=== PATIENT | male | born 1960 | race Caucasian/White ===

== ENCOUNTER → 2025-03-28 | Outpatient (CLI) | payer MEDICARE, SELFPAY | END | disposition home or self-care (01) | PROVIDERS: PCP Internal Medicine; Referring Provider Urology; Visit Provider Urology | DX: N40.1 Benign prostatic hyperplasia with lower urinary tract symptoms (principal) | CPT/HCPCS: 87077; 87086; 87088; 87186 ==

== ENCOUNTER → 2025-09-19 | Outpatient (CLI) | payer MEDICARE, SELFPAY ==
--- OUTSIDE RECORDS SUMMARY | 2025-09-19 17:12 | XMS RPT_ITS | CCD ---
Author Organization [facility] Care Team Providers Care Inpatient Nursing Aide Name Role Phone REX DO, JAKE Primary Care Physician [phone] BITONTE DO, JAKE Attending Unavailable BITONTE DO, JAKE Primary Care Unavailable BITONTE DO, JAKE Primary Care Unavailable AMBER AGLLEGO, DR BRANDI Jernigan Attending Unavailab radha BA MD, DR BRANDI Jernigan Attending Unavailab radha PATTERSON MD, LYN Consulting Unavailable BITONTE DO, JAKE Primary Care Unavailable LUIS GALLEGO, KADEN Consulting Unavailable AMBER GALLEGO, DR BRANDI Jernigan Attending Unavailab le BITONTE DO, JAKE Primary Care Unavailable BITONTE DO, JAKE Primary Care Unavailable BITONTE DO, JAKE Attending Unavailable BITONTE DO, JAKE Primary Care Unavailable BITONTE DO, JAKE Attending Unavailable BITONTE DO, JAKE Primary Care Unavailable RITO KENYON MD Attending Unavailable BITONTE DO, JAKE Primary Care Unavailable BITONTE DO, JAKE Attending Unavailable BITONTE DO, JAKE Attending Unavailable BITONTE DO, JAKE Primary Care Unavailable BITONTE DO, JAKE Attending Unavailable BITONTE DO, JAKE Primary Care Unavailable John Strickland Jr. Primary Care Unavailable Fuentes Peace Referring Unavailable Fuentes Peace Attending Unavailable Medications Current Medications Medication Drug Class(es) Dates Sig (Normalized) Sig (Original) acetaminophen 325 mg / HYDROcodone bitartrate 5 mg oral tablet (2 sources) Opioid Agonist Start: 04-22-2023 End: 04-27-2023 take 1 tablet by mouth every four hours as needed for pain [place] 325- 5 mg oral tablet Dose = 1 tab(s), Oral, q4h, PRN for pain, # 12 tab(s), 0 Refill(s), Pharmacy: [facility]/pharmacy #[id number], Post-op pain, 177.8, cm, 04/22/23 6:40:00 EDT, Height, 74.6 Start Date: 04/22/23 Stop Date: 04/27/23 Status: Ordered Start: 02-10-2023 End: 02-15-2023 take 1 tablet by mouth every four hours as needed for pain [place] 325- 5 mg oral tablet Dose = 1 tab(s), Oral, q4h, PRN for pain, # 12 tab(s), 0 Refill(s), Pharmacy: [facility]/pharmacy #[id number], Post-op pain, 177.8, cm, 02/10/23 7:37:00 EDT, Height, 78.6 Start Date: 02/10/23 Stop Date: 02/15/23 Status: Ordered finasteride 5 mg oral tablet (4 sources) 5-alpha Reductase Inhibitor Start: 02-17-2022 finasteride 5 mg oral tablet Dose : 5 mg = 1 tab(s), Oral, qHS Start Date: 02/17/22 Status: Ordered Multi-Day Plus Minerals oral tablet (4 sources) Start: 02-17-2022 take 1 tablet by mouth once daily in the morning Multi-Day Plus Minerals oral tablet Dose = 1 tab(s), Oral, qAM, # 30 tab(s), 0 Refill(s) Start Date: 02/17/22 Status: Ordered Start: 02-17-2022 take 1 tablet by azalia th once daily Multi-Day Plus Minerals oral tablet Dose = 1 tab(s), Oral, Daily, # 30 tab(s), 0 Refill(s) Start Date: 02/17/22 Status: Ordered Problems Active Problems Problem Classification Problem Date Documented Date Episodic/Chronic Abdominal hernia (8 sources) Inguinal hernia; Translations: [Left inguinal hernia ] 10-16-2015 Episodic Cardiac dysrhythmias (3 sources) 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 Cardiac dysrhythmias (1 source) Palpitations 10-12-2015 Episodic Diabetes mellitus without complication (4 sources) Hyperglycemia 10-03-2019 Episodic Disorders of lipid metabolism (4 sources) Mixed hyperlipidemia 10-03-2019 Chronic Hyperplasia of prostate (5 sources) Large prostate ; Translations: [Benign prostatic hyperplasia with lower urinary tract symptoms] Onset: 04-04-2025 10-03-2019 Chronic Other aftercare (1 source) Surgical follow-up 05-04-2023 Episodic Other and unspecified benign neoplasm (4 sources) Melanocytic nevus of skin 02-17-2022 Episodic Other and unspecified benign neoplasm (2 sources) Lipoma (clinical) 03-26-2023 Episodic Other nervous system disorders (2 sources) Postoperative pain ; Translations: [Other acute postprocedural pain] Onset: 02-10-2023 Episodic Nichole-; endo-; and myocarditis; cardiomyopathy (except that caused by tuberculosis or sexually transmitted disease) (2 sources) Cardiomyopathy 05-19-2023 Chronic Residual codes; unclassified (4 sources) FH: premature coronary heart disease 11-27-2020 Episodic Past or Other Problems Problem Classification Problem Date Documented Da te Episodic/Chronic Malaise and fatigue (2 sources) Other fatigue; Translations: [Other fatigue] Onset: 03-16-2023 Episodic Other screening for suspected conditions (not mental disorders or infectious disease) (2 sources) Other specified abnormal findings of blood chemistry; Translations: [Other specified abnormal findings of blood chemistry] Onset: 03-26-2023 Episodic Results Test Name Value Interpretation Reference Range Facility Urine Cultureon 03-30-2025 [facility] Staphylococcus aureu s [place] Count >100,000 Staphylococcus aureus: REACTION cefOXitin Susc Islt Doxycycline Islt MASON <=0.5 S Clindamycin.induced Susc Islt NEG Gentamicin Islt MASON <=0.5 S Linezolid Islt MASON 2 S Moxifloxacin Islt MASON <=0.25 S Nitrofurantoin Islt MASON <=16 S Oxacillin Susc Islt 1 S Tetracycline Islt MASON <=1 S TMP SMX Islt MASON <=10 S Vancomycin Islt MASON <=0.5 S Normal [facility] Comment on above: Performed By: #### M 100.2200 #### [facility] [address] [place], [place], [id number] .Auto Diffon 03-08-2025 Basophil, Absolute 0.0 10 3/mcL Normal 0.0-0.3 [facility] Comment on above: Performed By: #### L IPID, GFR, ADIFF, MORPH, ANEU, CBC, CMP #### [facility] [place] [address] [place] [id number] #### PSA #### [address] [address] Basophils/100 WBC (Bld) 0.6 % Normal 0.0-2.5 [facility] [place] Comment on above: Performed By: #### L IPID, GFR, ADIFF, MORPH, ANEU, CBC, CMP #### [facility] [address] [place] [id number] #### PSA #### [address] [address] Eosinophil, Absolute 0.1 10 3/mcL Normal 0.0-0.7 [facility] Comment on above: Performed By: #### L IPID, GFR, ADIFF, MORPH, ANEU, CBC, CMP #### [facility] [address] [place] [address] #### PSA #### [address] [address] Eosinophils/100 WBC (Bld) 4.1 % Normal 0.0-6.0 [facility] Comment on above: Performed By: #### L IPID, GFR, ADIFF, MORPH, ANEU, CBC, CMP #### [facility] [address] [place] [id number] #### PSA #### [address] [address] Lymphocyte, Absolute 1.0 10 3/mcL Normal 0.9-4.3 [facility] Comment on above: Performed By: #### L IPID, GFR, ADIFF, MORPH, ANEU, CBC, CMP #### [facility] [address] [place] [id number] #### PSA #### [address] [address] Lymphocytes/100 WBC (Bld) 27.5 % Normal 20.0-40.0 [facility] [place] Comment on above: Performed By: #### L IPID, GFR, ADIFF, MORPH, ANEU, CBC, CMP #### [facility] [place] [address] [place] [id number] #### PSA #### [place] [address] Monocyte, Absolute 0.4 10 3/mcL Normal 0.1-1.4 [facility] Comment on above: Performed By: #### L IPID, GFR, ADIFF, MORPH, ANEU, CBC, CMP #### [facility] [place] [address] [place] [id number] #### PSA #### [place] [address] Monocytes/100 WBC (Bld) 11.6 % Normal 2.0-13.0 [facility] [place] Comment on above: Performed By: #### L IPID, GFR, ADIFF, MORPH, ANEU, CBC, CMP #### [facility] [address] [place] [address] #### PSA #### [place] [address] Neutrophils/100 WBC (Bld) 56.2 % Normal 50.0-75.0 [facility] Comment on above: Performed By: #### L IPID, GFR, ADIFF, MORPH, ANEU, CBC, CMP #### [facility] [address] [place] [address] #### PSA #### [place] [address] .GFRon 03-08-2025 Estimated Glomerular Filtration Rate 87 ml/min/1.73sqm Normal [facility] Comment on above: Result Comment: Stages of Chronic Kidney Disease (CKD) Stage Description eGFR(ml/min/1.73 sq.m.) CKD 1 Normal kidney function or >=90 normal kindney function with possible kidney damage (ex. Proteinuria) CKD 2 Kidney damage with mild loss 60-89 of kidney function CKD 3a Mild to moderate loss of kidney 45-59 function CKD 3b Moderate to severe loss of 30-44 of kindey function CKD 4 Severe loss of kidney function 15-29 CKD 5 Kidney failure <15 Note: (go live 2024) the eGFR calculation was updated to the 2020 CKD-EPI creatinine equation without a race factor to calculate the eGFR results. Performed By: #### L IPID, GFR, ADIFF, MORPH, ANEU, CBC, CMP #### [facility] [address] [place] [address] #### PSA #### [place] [address] .Morphon 03-08-2025 Platelet Estimate Normal Normal [facility] Comment on above: Performed By: #### L IPID, GFR, ADIFF, MORPH, ANEU, CBC, CMP #### [facility] [address] [place] [address] #### PSA #### [place] [address] .NEUABSon 03-08-2025 Neutrophil, Absolute 2.0 10 3/mcL Low 2.3-8.1 [facility] Comment on above: Performed By: #### L IPID, GFR, ADIFF, MORPH, ANEU, CBC, CMP #### [facility] [address] [place] [address] #### PSA #### [place] [address] CBCon 03-08-2025 Erythrocyte distribution width (RBC) [Ratio] 13.7 % Normal 11.5-15.5 [facility] Comment on above: Performed By: #### L IPID, GFR, ADIFF, MORPH, ANEU, CBC, CMP #### [facility] [address] [place] [address] #### PSA #### [place] [address] Hematocrit (Bld) [Volume fraction] 43.8 % Normal 40.0-52.0 [facility] [place] Comment on above: Performed By: #### L IPID, GFR, ADIFF, MORPH, ANEU, CBC, CMP #### [facility] [address] [place] [address] #### PSA #### [place] [address] Hgb 14.5 G/dL Normal 13.0-17.5 [facility] [place] Comment on above: Performed By: #### L IPID, GFR, ADIFF, MORPH, ANEU, CBC, CMP #### [facility] [address] [place] [address] #### PSA #### [place] [address] MCH (RBC) [Entitic mass] 27.8 pg Normal 27.0-33.0 [facility] Comment on above: Performed By: #### L IPID, GFR, ADIFF, MORPH, ANEU, CBC, CMP #### [facility] [address] [place] [address] #### PSA #### [place] [address] MCHC 33.1 G/dL Normal 32.0-36.0 [facility] Comment on above: Performed By: #### L IPID, GFR, ADIFF, MORPH, ANEU, CBC, CMP #### [facility] [address] [place] [address] #### PSA #### [place] [address] MCV (RBC) [Entitic vol] 84.0 fL Normal 81.0-100.0 [facility] Comment on above: Performed By: #### L IPID, GFR, ADIFF, MORPH, ANEU, CBC, CMP #### [facility] [address] [place] [address] #### PSA #### [place] [address] Platelet 193 10 3/mcL Normal 150-450 [facility] Comment on above: Performed By: #### L IPID, GFR, ADIFF, MORPH, ANEU, CBC, CMP #### [facility] [address] [place] [address] #### PSA #### [place] [address] Platelet mean volume (Bld) [Entitic vol] 8.2 fL Normal 6.4-10.5 [facility] Comment on above: Performed By: #### L IPID, GFR, ADIFF, MORPH, ANEU, CBC, CMP #### [facility] [address] [place] [address] #### PSA #### [place] [address] RBC 5.21 10 6/mcL Normal 4.50-6.00 [facility] Comment on above: Performed By: #### L IPID, GFR, ADIFF, MORPH, ANEU, CBC, CMP #### [facility] [address] [place] [address] #### PSA #### [place] [address] WBC 3.6 10 3/mcL Low 4.5-10.8 [facility] Comment on above: Performed By: #### L IPID, GFR, ADIFF, MORPH, ANEU, CBC, CMP #### [facility] [address] [place] [address] #### PSA #### [place] [address] CMPon 03-08-2025 Albumin Level 4.0 G/dL Normal 3.4-4.8 [facility] Comment on above: Performed By: #### L IPID, GFR, ADIFF, MORPH, ANEU, CBC, CMP #### [facility] [address] [place] [address] #### PSA #### [place] [address] Albumin/Globulin [Mass ratio] 1.3 {ratio} Normal 1.1-2.5 [facility] Comment on above: Performed By: #### L IPID, GFR, ADIFF, MORPH, ANEU, CBC, CMP #### [facility] [address] [place] [address] #### PSA #### [place] [address] ALP [Catalytic activity/Vol] 70 U/L Normal 40-135 [facility] Comment on above: Performed By: #### L IPID, GFR, ADIFF, MORPH, ANEU, CBC, CMP #### [facility] [place] [address] [place] [address] #### PSA #### [place] [address] ALT [Catalytic activity/Vol] 35 U/L Normal 16-63 [facility] Comment on above: Performed By: #### L IPID, GFR, ADIFF, MORPH, ANEU, CBC, CMP #### [facility] [address] [place] [address] #### PSA #### [place] [address] AST [Catalytic activity/Vol] 22 U/L Normal 10-40 [facility] Comment on above: Performed By: #### L IPID, GFR, ADIFF, MORPH, ANEU, CBC, CMP #### [facility] [address] [place] [address] #### PSA #### [place] [address] Bili Total 0.8 mg/dL Normal 0.2-1.0 [facility] Comment on above: Result Comment: Use of this assay is not recommended for patients undergoing treatment with eltrombopag due to the potential for falsely elevated results. Performed By: #### L IPID, GFR, ADIFF, MORPH, ANEU, CBC, CMP #### [facility] [address] [place] [address] #### PSA #### [place] [address] BUN/Creatinine Ratio 19 ratio Normal 7-27 [facility] Comment on above: Performed By: #### L IPID, GFR, ADIFF, MORPH, ANEU, CBC, CMP #### [facility] [address] [place] [address] #### PSA #### [place] [address] Calcium [Mass/Vol] 9.3 mg/dL Normal 8.4-10.2 [facility] Comment on above: Performed By: #### L IPID, GFR, ADIFF, MORPH, ANEU, CBC, CMP #### [facility] [address] [place] [phone] #### PSA #### [place] [address] Chloride [Moles/Vol] 105 mmol/L Normal 98-107 [facility] Comment on above: Performed By: #### L IPID, GFR, ADIFF, MORPH, ANEU, CBC, CMP #### [facility] [place] [address] [place] [phone] #### PSA #### [place] [address] CO2 [Moles/Vol] 28 mmol/L Normal 23-31 [facility] Comment on above: Performed By: #### L IPID, GFR, ADIFF, MORPH, ANEU, CBC, CMP #### [facility] [address] [place] [phone] #### PSA #### [place] [address] Creatinine [Mass/Vol] 0.97 mg/dL Normal 0.67-1.17 [facility] Comment on above: Performed By: #### L IPID, GFR, ADIFF, MORPH, ANEU, CBC, CMP #### [facility] [place] [address] [place] [address] #### PSA #### [place] [address] Electrolyte Balance 8.0 mEq/L Normal 4.0-15.0 [facility] Comment on above: Performed By: #### L IPID, GFR, ADIFF, MORPH, ANEU, CBC, CMP #### [facility] [address] [place] [id number] #### PSA #### [place] [address] Globulin 3.0 G/dL Normal 2.7-4.4 [facility] Comment on above: Performed By: #### L IPID, GFR, ADIFF, MORPH, ANEU, CBC, CMP #### [facility] [place] [address] [place] [id number] #### PSA #### [address] [address] Glucose [Mass/Vol] 101 mg/dL Normal 80-115 [facility] [place] Comment on above: Performed By: #### L IPID, GFR, ADIFF, MORPH, ANEU, CBC, CMP #### [facility] [address] [place], [place] [address] #### PSA #### [place] [id number] Potassium [Moles/Vol] 4.5 mmol/L Normal 3.5-5.1 [facility] Comment on above: Performed By: #### L IPID, GFR, ADIFF, MORPH, ANEU, CBC, CMP #### [facility] [address] [place] [id number] #### PSA #### [place] [address] Sodium [Moles/Vol] 141 mmol/L Normal 136-145 [facility] Comment on above: Performed By: #### L IPID, GFR, ADIFF, MORPH, ANEU, CBC, CMP #### [facility] [address] [place] [id number] #### PSA #### [place] [id number] Total Protein 7.0 G/dL Normal 6.4-8.2 [facility] Comment on above: Performed By: #### L IPID, GFR, ADIFF, MORPH, ANEU, CBC, CMP #### [facility] [address] [place] [phone] #### PSA #### [address] [address] Urea nitrogen [Mass/Vol] 18 mg/dL Normal 7-18 [facility] Comment on above: Performed By: #### L IPID, GFR, ADIFF, MORPH, ANEU, CBC, CMP #### [facility] [address] [place] [phone] #### PSA #### [place] [id number] LIPIDon 03-08-2025 Cholesterol [Mass/Vol] 163 mg/dL Normal 0-200 [facility] Comment on above: Result Comment: Chol esterol Reference Interval: Less than 200 Desirable 200-239 Borderline high risk 240 and above High risk Performed By: #### L IPID, GFR, ADIFF, MORPH, ANEU, CBC, CMP #### [facility] [address] [place] [id number] #### PSA #### [place] [address] Cholesterol in HDL [Mass/Vol] 51 mg/dL Normal 40-60 [facility] Comment on above: Performed By: #### L IPID, GFR, ADIFF, MORPH, ANEU, CBC, CMP #### [facility] [address] [place] [address] #### PSA #### [place] [address] Cholesterol in LDL [Mass/Vol] 98 mg/dL Normal 0-130 [facility] Comment on above: Performed By: #### L IPID, GFR, ADIFF, MORPH, ANEU, CBC, CMP #### [facility] [address] [place] [address] #### PSA #### [place] [address] Triglyceride [Mass/Vol] 71 mg/dL Normal 0-150 [facility] Comment on above: Performed By: #### L IPID, GFR, ADIFF, MORPH, ANEU, CBC, CMP #### [place] [facility] [place] [address] [place] [address] #### PSA #### [place] [address] PSAon 03-08-2025 Prostate Specific Antigen 1.80 ng/mL Normal 0.02-4.00 [facility] Comment on above: Result Comment: Lesvia ent results determined by assays using different manufacturers for methods may not be comparable. Performed By: #### L IPID, GFR, ADIFF, MORPH, ANEU, CBC, CMP #### [facility] [place] [address] [place] [address] #### PSA #### [address] [address] PSAon 03-08-2024 Prostate Specific Antigen 2.27 ng/mL Normal 0.02-4.00 [facility] ([place]) Comment on above: Result Comment: Lesvia ent results determined by assays using different manufacturers for methods may not be comparable. Performed By: #### P SA #### [address] [address] .Auto Diffon 03-03-2024 Basophil, Absolute 0.0 10 3/mcL Normal 0.0-0.3 [facility] ([place]) Comment on above: Performed By: #### G FR, LIPID, CBC, ADIFF, ANEU, BMP #### [address] [address] Basophils/100 WBC (Bld) 1.2 % Normal 0.0-2.5 [facility] ([place]) Comment on above: Performed By: #### G FR, LIPID, CBC, ADIFF, ANEU, BMP #### [address] [address] Eosinophil, Absolute 0.1 10 3/mcL Normal 0.0-0.7 [facility] ([place]) Comment on above: Performed By: #### G FR, LIPID, CBC, ADIFF, ANEU, BMP #### [address] [address] Eosinophils/100 WBC (Bld) 3.0 % Normal 0.0-6.0 [facility] ([place]) Comment on above: Performed By: #### G FR, LIPID, CBC, ADIFF, ANEU, BMP #### [address] [address] Lymphocyte, Absolute 0.9 10 3/mcL Normal 0.9-4.3 [facility] ([place]) Comment on above: Performed By: #### G FR, LIPID, CBC, ADIFF, ANEU, BMP #### [address] [address] Lymphocytes/100 WBC (Bld) 22.1 % Normal 20.0-40.0 [facility] ([place]) Comment on above: Performed By: #### G FR, LIPID, CBC, ADIFF, ANEU, BMP #### [address] [address] Monocyte, Absolute 0.4 10 3/mcL Normal 0.1-1.4 [facility] ([place] Comment on above: Performed By: #### G FR, LIPID, CBC, ADIFF, ANEU, BMP #### [address] [address] Monocytes/100 WBC (Bld) 9.4 % Normal 2.0-13.0 [facility] ([place]) Comment on above: Performed By: #### G FR, LIPID, CBC, ADIFF, ANEU, BMP #### [address] [address] Neutrophils/100 WBC (Bld) 64.3 % Normal 50.0-75.0 [facility] ([place]) Comment on above: Performed By: #### G FR, LIPID, CBC, ADIFF, ANEU, BMP #### [address] [address] .GFRon 03-03-2024 GFR Non- >60 Normal [facility] ([place]) Comment on above: Result Comment: GFR Population mean for , Non- Americans Ages 20-29 = 116 mL/min/1.73 sq.m. Ages 30-39 = 107 mL/min/1.73 sq.m. Ages 40-49 = 99 mL/min/1.73 sq.m. Ages 50-59 = 93 mL/min/1.73 sq.m. Ages 60-69 = 85 mL/min/1.73 sq.m. Ages 70+ = 75 mL/min/1.73 sq.m. Chronic Kidney Disease: Less than 60 mL/min/1.73 square meters End Stage Renal Disease: Less than 15 mL/min/1.73 square meters Performed By: #### G FR, LIPID, CBC, ADIFF, ANEU, BMP ####[address] [address] GFR >60 Normal [facility] ([place]) Comment on above: Result Comment: GFR Population mean for , Non- Americans Ages 20-29 = 116 mL/min/1.73 sq.m. Ages 30-39 = 107 mL/min/1.73 sq.m. Ages 40-49 = 99 mL/min/1.73 sq.m. Ages 50-59 = 93 mL/min/1.73 sq.m. Ages 60-69 = 85 mL/min/1.73 sq.m. Ages 70+ = 75 mL/min/1.73 sq.m. Chronic Kidney Disease: Less than 60 mL/min/1.73 square meters End Stage Renal Disease: Less than 15 mL/min/1.73 square meters Performed By: #### G FR, LIPID, CBC, ADIFF, ANEU, BMP ####[address] [address] .NEUABSon 03-03-2024 Neutrophil, Absolute 2.8 10 3/mcL Normal 2.3-8.1 [facility] ([place]) Comment on above: Performed By: #### G FR, LIPID, CBC, ADIFF, ANEU, BMP #### [address] [address] BMPon 03-03-2024 BUN/Creatinine Ratio 18.4 ratio Normal 10.0-22.0 [facility] ([place]) Comment on above: Order Comment: Pleas e drawn in 02/2023, 1 year labs. Performed By: #### G FR, LIPID, CBC, ADIFF, ANEU, BMP ####[address] [address] Calcium [Mass/Vol] 9.5 mg/dL Normal 8.7-10.4 [facility] ([place]) Comment on above: Order Comment: Pleas e drawn in 02/2023, 1 year labs. Performed By: #### G FR, LIPID, CBC, ADIFF, ANEU, BMP ####[address] [address] Chloride [Moles/Vol] 109 mmol/L Normal 98-110 [facility] ([place]) Comment on above: Order Comment: Pleas e drawn in 02/2023, 1 year labs. Performed By: #### G FR, LIPID, CBC, ADIFF, ANEU, BMP ####[address] [address] CO2 [Moles/Vol] 30 mmol/L Normal 22-32 [facility] [place] Comment on above: Order Comment: Pleas e drawn in 02/2023, 1 year labs. Performed By: #### G FR, LIPID, CBC, ADIFF, ANEU, BMP ####[address] [address] Creatinine [Mass/Vol] 0.87 mg/dL Normal 0.60-1.40 [facility] ([place]) Comment on above: Order Comment: Pleas e drawn in 02/2023, 1 year labs. Performed By: #### G FR, LIPID, CBC, ADIFF, ANEU, BMP ####[address] [address] Electrolyte Balance 0.0 mEq/L Low 4.0-15.0 [facility] ([place]) Comment on above: Order Comment: Pleas e drawn in 02/2023, 1 year labs. Performed By: #### G FR, LIPID, CBC, ADIFF, ANEU, BMP ####[address] [address] Glucose [Mass/Vol] 107 mg/dL Normal 82-115 [facility] ([place]) Comment on above: Order Comment: Pleas e drawn in 02/2023, 1 year labs. Performed By: #### G FR, LIPID, CBC, ADIFF, ANEU, BMP ####[address] [address] Potassium [Moles/Vol] 4.6 mmol/L Normal 3.5-5.0 [facility] ([place]) Comment on above: Order Comment: Pleas e drawn in 02/2023, 1 year labs. Performed By: #### G FR, LIPID, CBC, ADIFF, ANEU, BMP ####[address] [address] Sodium [Moles/Vol] 139 mmol/L Normal 136-145 [facility] ([place]) Comment on above: Order Comment: Pleas e drawn in 02/2023, 1 year labs. Performed By: #### G FR, LIPID, CBC, ADIFF, ANEU, BMP ####[place] [address] Urea nitrogen [Mass/Vol] 16.0 mg/dL Normal 8.0-22.0 [facility] ([place]) Comment on above: Order Comment: Noah reynoso drawn in 02/2023, 1 year labs. Performed By: #### G FR, LIPID, CBC, ADIFF, ANEU, BMP ####[place] [address] CBCon 03-03-2024 Erythrocyte distribution width (RBC) [Ratio] 13.9 % Normal 11.5-15.5 [facility] ([place] Comment on above: Performed By: #### G FR, LIPID, CBC, ADIFF, ANEU, BMP #### [place] [address] Hematocrit (Bld) [Volume fraction] 43.9 % Normal 40.0-52.0 [facility] ([place] Comment on above: Performed By: #### G FR, LIPID, CBC, ADIFF, ANEU, BMP #### [place] [address] Hgb 14.9 G/dL Normal 13.0-17.5 [facility] ([place] Comment on above: Performed By: #### G FR, LIPID, CBC, ADIFF, ANEU, BMP #### [place] [address] MCH (RBC) [Entitic mass] 28.2 pg Normal 27.0-33.0 [facility] ([place] Comment on above: Performed By: #### G FR, LIPID, CBC, ADIFF, ANEU, BMP #### [place] [address] MCHC 33.9 G/dL Normal 32.0-36.0 [facility] ([place] Comment on above: Performed By: #### G FR, LIPID, CBC, ADIFF, ANEU, BMP #### [place] [address] MCV (RBC) [Entitic vol] 83.3 fL Normal 81.0-100.0 [facility] ([place]) Comment on above: Performed By: #### G FR, LIPID, CBC, ADIFF, ANEU, BMP #### [place] [address] Platelet 190 10 3/mcL Normal 150-450 [facility] ([place]) Comment on above: Performed By: #### G FR, LIPID, CBC, ADIFF, ANEU, BMP #### [place] [address] Platelet mean volume (Bld) [Entitic vol] 9.0 fL Normal 6.4-10.5 [facility] ([place]) Comment on above: Performed By: #### G FR, LIPID, CBC, ADIFF, ANEU, BMP #### [place] [address] RBC 5.28 10 6/mcL Normal 4.50-6.00 [facility] ([place]) Comment on above: Performed By: #### G FR, LIPID, CBC, ADIFF, ANEU, BMP #### [place] [address] WBC 4.3 10 3/mcL Low 4.5-10.8 [facility] ([place]) Comment on above: Performed By: #### G FR, LIPID, CBC, ADIFF, ANEU, BMP #### [place] [address] HCVon 03-03-2024 Hep C Ab Non-Reactive Normal Non-Reactive [facility] ([place]) Comment on above: Performed By: #### H CV1 #### [place] [address] Hep C Ab Int Normal [facility], [facility] ([place]) Comment on above: Result Comment: Nonr eactive: Samples with a value < 0.80 are considered nonreactive (negative) for antibodies to HCV. A negative test result does not exclude the possibility of exposure to or infection with HCV. HCV antibodies may be undetectable in some stages of the infection and in some clinical conditions. See Interp Performed By: #### H CV1 #### [place] [address] LIPIDon 04-25-2024 Cholesterol [Mass/Vol] 184 mg/dL Normal 50-199 [facility] ([place]) Comment on above: Order Comment: Pleas e drawn in 02/2023, 1 year labs. Result Comment: Chol esterol Reference Interval: Less than 200 Desirable 200-239 Borderline high risk 240 and above High risk Performed By: #### G FR, LIPID, CBC, ADIFF, ANEU, BMP ####[place] [id number] [place] [address] Cholesterol in HDL [Mass/Vol] 53 mg/dL Normal 40-59 [facility] ([place]) Comment on above: Order Comment: Pleas e drawn in 02/2023, 1 year labs. Performed By: #### G FR, LIPID, CBC, ADIFF, ANEU, BMP ####[place] [id number] [place] [address] Cholesterol in LDL [Mass/Vol] 110 mg/dL Normal 0-129 [facility] ([place]) Comment on above: Order Comment: Pleas e drawn in 02/2023, 1 year labs. Performed By: #### G FR, LIPID, CBC, ADIFF, ANEU, BMP ####[address] [address] Triglyceride [Mass/Vol] 107 mg/dL Normal 3-149 [facility] ([place]) Comment on above: Order Comment: Pleas e drawn in 02/2023, 1 year labs. Performed By: #### G FR, LIPID, CBC, ADIFF, ANEU, BMP ####[address] [address] MRI CARDIAC MORPHOLOGY AND F [facility] W+W/O CONTon 10-04-2023 MRI CARDIAC MORPHOLOGY AND FUNC W+W/O CONT ORIGINAL Indication: Cardiomyopathy Technique: SSFP, 2XIR and 2XIR+FS images were obtained. 30 CC Multihance contrast given and First pass perfusion images, EGE and LGE (PSIR and MagIR) images were obtained. Findings: Septal wall thickness: 9 mm PW thickness: 6 mm LVEDD: 58 mm RV Basal diameter: 42 mm RV Long [place]: 70 mm AORTA (@ level of MPA): 34 mm MPA (@ level of Aorta): 26 mm RPA: 18 mm LPA: 18 mm IVC: 17 mm Pulmonary Veins: Normal LV Systolic function appears low normal . EF (visual estimation) is 55 % RV systolic function appears normal CHASTITY: Normal No regional wall motion abnormalities noted. Noncompaction in apical lateral segment: NC:C ratio 2.4. NC myocardium less than 20% of myocardium. Quantification: LV mass [g]: \X0909\ 72 LV mass/BSA [g/m2]:\X09\ 37 LV EDV [mL]:\X0909\ 198 LV ESV [mL]:\X0909\ 89 LV stroke volume [mL]: 110 LV EF [%]:\X0909\ 55 C.O [L/min]:\X0909\ 8,3 C.O/BSA:\X0909\ 4.2 RV EDV [mL]:\X0909\ 151 RV ESV [mL]:\X0909\ 59 RV stroke volume [mL]:\X09\92 RV EF [%]:\X0909\ 61 C.O [L/min]:\X0909\ 7 Valves: Normal Masses: Absent Pericardial thickening: Absent Pericardial effusion: Absent T1 images Unremarkable T1+FS images No edema First pass images show normal perfusion Post contrast images no significant EGE or LGE Conclusion: 1. Mild left ventricular dilatation with low normal LV systolic function. LVEF 55%. There is increased ratio of Noncompacted: Compacted myocardium limited to apical lateral wall [ratio 2.4]. The remainder of the myocardium appears normal. The noncompacted myocardial mass is less than 20%. 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 No evidence of ischemic cardiomyopathy, infiltrative disorder or myocarditis. 2. Normal RV size and function. Interpreted By: Rickey Weaver MD Preliminary Report By: Rickey Weaver MD Electronically Signed By: Rickey Weaver MD Dictated Date: 10/04/2023 1:57:57 PM Prelim Date: 10/04/2023 1:57:57 PM Sign Date: 10/04/2023 2:11:04 PM Ordering Provider:Rito Kenyon [facility] ([place]) XR FOREIGN BODY LOC EYE BILA TERALon 09-25-2023 XR FOREIGN BODY LOC EYE BILATERAL ORIGINAL EXAMINATION: XR OR FOREIGN BODY 09/25/2023 6:11 pm COMPARISON: None. HISTORY: ORDERING SYSTEM PROVIDED HISTORY: Reason for Exam: check for metal FINDINGS: No unexpected radiopaque foreign body. Dental amalgam. IMPRESSION: No unexpected radiopaque foreign body. Interpreted by: Selvin Sykes Preliminary Report By: Selvin Sykes Electronically signed By Selvin Sykes Dictated Date: 09/25/2023 6:15:28 PM Prelim Date: 09/25/2023 6:16:10 PM Sign Date: 09/25/2023 6:16:10 PM Ordering Provider: RITO Pugh [facility] ([place]) Final Surgical Pathology Rep eric 04-24-2023 Final Surgical Pathology Report . Pathology Reports Accession: Collected Date/Time: Received Date/Time: Pathologist: [id number] 04/22/2023 08:30 EDT 04/22/2023 16:01 NIKKYT BULL ATKINS MD Final Surgical Pathology Report DIAGNOSIS: SOFT TISSUE, RIGHT SHOULDER: - LIPOMA CLINICAL INFORMATION: Procedure: EXCISION LIPOMA RIGHT SHOULDER Preoperative diagnosis: LIPOMA RIGHT SHOULDER Postoperative diagnosis: LIPOMA RIGHT SHOULDER SPECIMEN: A LIPOMA RIGHT SHOULDER GROSS DESCRIPTION: A. Received in formalin, labeled with the patients name, Case #[id number], and right shoulder lipoma is a griggs wrinkled skin ellipse measuring 2.5 x 1.1 and excised to a depth of 3 cm. Beneath the skin surface is a large yellow lobulated portion of adipose tissue measuring 9.8 x 7.5 cm. Sectioning of the adipose tissue reveals unremarkable cut surfaces. RS -2 Dictated by JESICA GENTILE MICROSCOPIC DESCRIPTION: The microscopic examination is performed, except in the case of Gross Only. Electronically Signed by Pathology Report verified by [facility] BULL ATKINS Sign out Date: 04/24/2023 14:07 Performing Lab: [facility], [address] [place] [address] States Pathology Dept Disclaimer If ancillary studies were utilized, the following Laboratory Developed Test (LDT) disclaimer will apply: Under CLIA requirements, [facility] is qualified to perform high complexity testing. For all ancillary stains, positive and negative controls stain appropriately. Performance characteristics of immunohistochemical and chromogenic in-situ hybridization tests have been determined by [facility]. These tests are used for clinical purposes, They should not be regarded as investigational or for research. Normal [facility] ([place]) FT4on 03-26-2023 Free T4 [Mass/Vol] 0.96 ng/dL Normal 0.89-1.76 [facility] ([place]) Comment on above: Result Comment: No te - New Reference Range in effect 20 Performed By: #### T SH, FT4 #### [place] [address] TSHon 03-26-2023 TSH 5.282 mIU/mL High 0.550-4.780 [facility] ([place]) Comment on above: Result Comment: No te - New Reference Range in effect 20 Performed By: #### T CRISTIN, FT4 #### [place] [address] TSHon 03-16-2023 TSH 5.795 mIU/mL High 0.550-4.780 [facility] ([place]) Comment on above: Result Comment: No te - New Reference Range in effect 20 Performed By: #### T SH #### [place] [address] GLUon 10-03-2019 Glucose [Mass/Vol] 103 mg/dL Normal 82-115 [facility] ([place]) Comment on above: Performed By: #### Germain HOLGUIN, LIPID #### [place] [address] LIPIDon 10-03-2019 Cholesterol [Mass/Vol] 173 mg/dL Normal 50-199 [facility] ([place]) Comment on above: Result Comment: Chol esterol Reference Interval: Less than 200 Desirable 200-239 Borderline high risk 240 and above High risk Performed By: #### G EZIO, LIPID #### [place] [address] Cholesterol in HDL [Mass/Vol] 49 mg/dL Normal 40-59 [facility] ([place]) Comment on above: Result Comment: HDL Reference Interval: Less than 40 Low - high risk 60 or above Optimal/lowers risk Performed By: #### G EZIO, LIPID #### [facility] [address] [place] [address] Cholesterol in LDL [Mass/Vol] 92 mg/dL Normal 0-129 [facility] ([place]) Comment on above: Result Comment: LDL is a calculated result and requires a 12- hr fast. LDL Reference Interval: Less than 100 Optimal 100-129 Near or above optimal 130-159 Borderline high risk 160-189 High risk 190 and above Very high risk Performed By: #### G EZIO, LIPID #### [facility] [address] [place] [address] Triglyceride [Mass/Vol] 158 mg/dL High 3-149 [facility] ([place]) Comment on above: Result Comment: Trig lyceride Reference Interval: Less than 150 Normal 150-199 Borderline high risk 200-499 High risk 500 or higher Very high risk Performed By: #### G EZIO, LIPID #### [facility] [address] [place] [address] Vital Signs Date Time Vital Sign Value Performing Clinician Faci litamos 04-22-2023 10:04-0400 Body temperature 96.8 [degF] DR BRANDI BA MD [facility] 04-22-2023 10:04-0400 Diastolic Blood Pressure Non-Invasive [address] BRANDI BA MD [facility] 04-22-2023 10:04-0400 Heart rate 65 /min DR BRANDI BA MD [facility] 04-22-2023 10:04-0400 Respiratory rate 16 /min DR BRANDI BA MD [facility] 04-22-2023 10:04-0400 Systolic Blood Pressure Non-Invasive [address] BRANDI BA MD [facility] 04-22-2023 08:50-0400 Body temperature 96.98 [degF] DR BRANDI BA MD [facility] 04-22-2023 08:50-0400 Diastolic Blood Pressure Non-Invasive [address] BRANDI BA MD [facility] 04-22-2023 08:50-0400 Heart rate 67 /min DR BRANDI BA MD [address] [place] [address] 04-22-2023 08:50-0400 Respiratory rate 18 /min DR BRANDI BA MD [facility] 04-22-2023 08:50-0400 Systolic Blood Pressure Non-Invasive [address] BRANDI BA MD [address] [place] [address] 04-22-2023 08:45-0400 Heart rate 78 /min DR BRANDI BA MD [address] [place] [address] 04-22-2023 08:45-0400 Respiratory Rate - Anes 3 br/min DR BRANDI BA MD [address] 04-22-2023 08:43-0400 Diastolic Blood Pressure Non-Invasive [address] BRANDI BA MD [address] 04-22-2023 08:43-0400 Systolic Blood Pressure Non-Invasive [address] BRANDI BA MD [address] 04-22-2023 08:40-0400 Heart rate 61 /min DR BRANDI BA MD [address] 04-22-2023 08:40-0400 Respiratory Rate - Anes 18 br/min DR BRANDI BA MD [address] [place] [address] 04-22-2023 08:35-0400 Heart rate 62 /min DR BRANDI BA MD [address] [place] [address] 04-22-2023 08:35-0400 Respiratory Rate - Anes 19 br/min DR BRANDI BA MD [facility] 04-22-2023 06:37-0400 Body height 177.[address] BRANDI BA MD [address] [place] [address] 04-22-2023 06:37-0400 Body temperature 97.7 [degF] DR BRANDI BA MD [facility] 04-22-2023 06:37-0400 Body weight 74.[address] BRANDI BA MD [facility] 04-22-2023 06:37-0400 Heart rate 64 /min DR BRANDI BA MD [address] [place] [address] 04-22-2023 06:37-0400 Respiratory rate 18 /min DR BRANDI BA MD [address] [place] [address] 04-17-2023 10:33-0400 Body height [address] BRANDI BA MD [address] [place] [address] 04-17-2023 10:33-0400 Body weight 79.[address] BRANDI BA MD [address] [place] [address] 04-17-2023 10:33-0400 Body weight 25.38 kg/m2 DR BRANDI BA MD [address] [place] [address] 02-10-2023 13:10-0400 Diastolic Blood Pressure Non-Invasive [address] BRANDI BA MD [address] [place] [address] 02-10-2023 13:10-0400 Heart rate 50 /min DR BRANDI BA MD [address] [place] [address] 02-10-2023 13:10-0400 Respiratory rate 16 /min DR BRANDI BA MD [address] [place] [address] 02-10-2023 13:10-0400 Systolic Blood Pressure Non-Invasive [address] BRANDI BA MD [address] [place] [address] 02-10-2023 12:21-0400 Body temperature 96.08 [degF] DR BRANDI BA MD [facility] 02-10-2023 12:21-0400 Diastolic Blood Pressure Non-Invasive [address] BRANDI BA MD [facility] 02-10-2023 12:21-0400 Heart rate 47 /min DR BRANDI BA MD [facility] 02-10-2023 12:21-0400 Respiratory rate 18 /min DR BRANDI BA MD [facility] 02-10-2023 12:21-0400 Systolic Blood Pressure Non-Invasive [address] BRANDI BA MD [facility] 02-10-2023 11:57-0400 Body temperature 96.8 [degF] DR BRANDI BA MD [facility] 02-10-2023 11:57-0400 Diastolic Blood Pressure Non-Invasive [address] BRANDI BA MD [address] [place] [address] 02-10-2023 11:57-0400 Heart rate 50 /min DR BRANDI BA MD [address] [place] [address] 02-10-2023 11:57-0400 Mean blood pressure 77 mm[Hg] DR BRANDI BA MD [address] [place] [address] 02-10-2023 11:57-0400 Respiratory rate 16 /min DR BRANDI BA MD [facility] 02-10-2023 11:57-0400 Systolic Blood Pressure Non-Invasive [address] BRANDI BA MD [facility] 02-10-2023 11:46-0400 Mean blood pressure 77 mm[Hg] DR BRANDI BA MD [facility] 02-10-2023 11:31-0400 Mean blood pressure 68 mm[Hg] DR BRANDI BA MD [facility] 02-10-2023 11:16-0400 Body temperature 96.8 [degF] DR BRANDI BA MD [facility] 02-10-2023 11:10-0400 Respiratory Rate - Anes 0 br/min DR BRANDI BA MD [facility] 02-10-2023 11:05-0400 Body temperature 94.57 [degF] DR BRANDI BA MD [facility] 02-10-2023 11:05-0400 Respiratory Rate - Anes 6 br/min DR BRANDI BA MD [facility] 02-10-2023 11:00-0400 Respiratory Rate - Anes 20 br/min DR BRANDI BA MD [facility] 02-10-2023 10:55-0400 Body temperature 94.55 [degF] DR BRANDI BA MD [facility] 02-10-2023 07:33-0400 Body height 177.[address] BRANDI BA MD [facility] 02-10-2023 07:33-0400 Body weight 78.[address] BRANDI BA MD [facility] 02-10-2023 07:33-0400 Heart rate 57 /min DR BRANDI BA MD [facility] 02-03-2023 08:19-0400 Body height 177.[address] BRANDI BA MD [facility] 02-03-2023 08:19-0400 Body weight 81.[address] BRANDI BA MD [facility] 02-03-2023 08:19-0400 Body weight 25.88 kg/m2 DR BRANDI BA MD [facility] Encounters Encounter Date Encounter Type Care Provider Facility Start: 03-28-2025 End: 03-28-2025 ambulatory John Strickland Jr. Facility:[facility] Start: 03-08-2025 End: 03-08-2025 ambulatory [facility] Facility:A Start: 03-08-2024 End: 03-09-2024 [facility] Facility:[facility] Start: 03-03-2024 End: 03-04-2024 ambulatory JAKE BITONTE DO Facility:A Start: 09-25-2023 End: 09-26-2023 ambulatory JAKE BITONTE DO Facility:A Start: 09-25-2023 End: 09-25-2023 Patient encounter procedure RITO KENYON MD [facility] Start: 05-08-2023 End: 05-09-2023 ambulatory JAKE BITONTE DO Facility:A Start: 05-04-2023 End: 05-05-2023 ambulatory JAKE BITONTE DO Facility:A Start: 04-22-2023 End: 04-22-[address] BRANDI BA MD Facility:A Start: 04-22-2023 End: 04-22-[address] BRANDI AB MD [facility] Start: 03-26-2023 End: 03-31-2023 ambulatory JAKE BITONTE DO Facility:A Start: 03-16-2023 End: 03-21-2023 ambulatory JAKE BITONTE DO Facility:A Start: 02-10-2023 End: 02-10-[address] BRANDI BA MD [facility] Start: 01-15-2023 End: 01-15-[address] BRANDI BA MD [facility] Procedures Date Procedure Procedure Detail Performing Clinician Start: 04-22-2023 Excision of lipoma o f shoulder RITO KENYON MD Comment on above: Excision of a lipoma right shoulder Start: 02-10-2023 Repair of left ingui nal hernia DR BRANDI BA MD Comment on above: Left inguinal hernia repair with mesh Hernia repair DR BRANDI AWAD MD Comment on above: 2014 right inguinal herni a repair Immunizations Immunization Date Immunization Notes Care Provider Fa [facility] 10-03-2019 tetanus and diphther ia toxoids, adsorbed, preservative free, for adult use (5 Lf of tetanus toxoid and 2 Lf of diphtheria toxoid); Translations: [Tenivac] DR BRANDI AB MD [facility] Payers Date Payer Category Payer Medicare [id number] 2025 Self-pay 2025 Medicare [id number] 2017 Private Health Insurance [id number] 1960 Unknown [id number] 2.16.8 [id number] 1959 Unknown [id number] 2.16.8 [id number] 1959 Unknown [id number] 2.16.8 [id number] 1959 Unknown [id number] 2.16.8 [id number] 1959 Unknown [id number] 2.16.8 [id number] 1959 Unknown [id number] 2.16.8 [id number] 1959 Unknown [id number] 2.16.8 [id number] 1959 Unknown [id number] 2.16.8 [id number] 1959 Unknown [id number] 2.16.8 [id number] 1959 Unknown [id number] 2.16.8 [id number] Unknown [id number] 2.16.8 [id number] Social History Date Type Detail Facility Start: 10-03-2019 Tobacco smoking status Never s moked tobacco (finding) [facility] Sex Assigned At Male [facility] Medical Equipment Procedure Code Equipment Code Equipment Origin al Text Equipment Identifier Dates Inguinal Hernia Repair Unknown 02/10/23 Unknown Unknown FDA Start: 02-10-2023 Inguinal Hernia Repair Unknown 02/10/23 Unknown Unknown FDA Start: 02-10-2023 Inguinal Hernia Repair Unknown 02/10/23 Unknown Unknown FDA Start: 02-10-2023 Functional Status Date Assessment Result Facility 04-22-2023 Functional Status Ambulating in room [facility] 04-22-2023 Functional Status [facility] 04-22-2023 Functional Status [facility] 04-17-2023 Functional Status Sensory Deficits None A [facility] 02-10-2023 Functional Status ID band on, Call device within reach, Bed in low position, Wheels locked, Upper/Half-Length side-rails up, Phone within reach, personal items within reach [facility] 02-10-2023 Functional Status ice on [facility] 02-10-2023 Functional Status Maintained [facility] Mental Status Date Assessment Result Facility 04-22-2023 Mental Status Orientation Oriented x 4 [facility] 04-22-2023 Mental Status [facility] 04-22-2023 Mental Status [facility] 02-10-2023 Mental Status Oriented x 4 [facility] 02-10-2023 Mental Status [facility] Clinical Notes 02-10-2023 to 09-25-2023 LaboratoryRadiologyLaboratoryLaboratoryLaboratory Note Date & Type Note Facility 09-25-2023 Note ORIGINAL EXAMINATION: XR OR FOREIGN BODY 09/25/2023 6:11 pm COMPARISON: None. HISTORY: ORDERING SYSTEM PROVIDED HISTORY: Reason for Exam: check for metal FINDINGS: No unexpected radiopaque foreign body. Dental amalgam. IMPRESSION: No unexpected radiopaque foreign body. Interpreted by: Selvin Sykes Preliminary Report By: Selvin Sykes Electronically signed By Selvin Sykes Dictated Date: 09/25/2023 6:15:28 PM Prelim Date: 09/25/2023 6:16:10 PM Sign Date: 09/25/2023 6:16:10 PM Ordering Provider: RITO KENYON [facility] 04-22-2023 Hospital Discharg e instructions Patient Education 04/22/2023 08:58:48 1-[facility] Discharge Instructions Template (08/2018)(CUSTOM) [facility] SAME DAY SURGERY DISCHARGE INSTRUCTIONS PLEASE FOLLOW THE INSTRUCTIONS BELOW MARKED WITH AN X: _x__ Regular Diet: Start with clear liquids, then soup and crackers and gradually add other foods. _x__ Drink extra fluids. ___ Special Diet Instructions: ___ ACTIVITY: _x__ Avoid stress to suture line. Since you have had an anesthetic, it would be advisable not to drive, drink alcohol, or make major decisions over the next 24 hours. You may require more rest tonight and tomorrow. ___ May resume regular activity as tolerated. ___ Restrict activity as follows: ___ ___ Walk Only ___ ___ Do not go up and down stairs. ___ Do not ride in car until ___ ___ Do not drive car. ___ Do not have sexual intercourse. ___ No heavy lifting, pushing or straining. _x__ Other: _Follow all instructions provided to you by Dr. Ba__ BATHING/SHOWERING: ___ Sponge bathe until office visit. ___ Sitting in tub of warm water may relieve discomfort. ___ May tub bathe _x__ May shower ___ On day after surgery sit in tub of warm water to soak off dressing. DRESSING: ___ Keep operative area dry and clean for ___ _x__ Check the operative area for signs of bleeding. Apply pressure to the bleeding site if necessary and call your physician. ___ Change dressing as necessary using sterile dressing material or bandaid. ___ Reinforce dressing as necessary. ___ Change and care for wound as follows: ___ ___ Wear bra for ___ days following breast surgery for comfort. ___ Change drip pad as needed. ___ Wear scrotal support for comfort. WATCH FOR SIGNS OF INFECTION: (Usually appears 36-48 hours after surgery) Increased temperature (101 degrees Fahrenheit or higher) Redness or swelling Increased pain Foul odor or drainage. If you have any questions, please call your doctor at the number listed on your follow up instructions. Follow all instructions given to you by your physician. Please complete and return the survey you will be receiving in the mail to help us better serve our patients. Form: [id number] ([id number]) R: 02/15 Follow Up Care 03/26/2023 09:31:20 With:BRANDI BA MD, [facility]/[place], Surgery Address: [address] [place] [address] [address] [id number] When: Unknown [facility] 04-22-2023 Anesthesiology Consult note Patient: STEVENSON FAULKNER Age: 62 years Sex: Male : 1960 Associated Diagnoses: None Author: KADEN SMITH MD Postoperative Information Post Operative Info: Post op day: Post Anesthesia Care Unit. Patient location: PACU. Assessment Postanesthesia assessment Vitals: Vital signs from flowsheet : Vital Signs 04/22/2023 8:50 EDT Temperature Temporal Artery 36.1 DegC Peripheral Pulse Rate 67 bpm Respiratory Rate 18 br/min Systolic Blood Pressure Non-Invasive 102 mmHg Diastolic Blood Pressure Non-Invasive 65 mmHg 04/22/2023 8:45 EDT Heart Rate Monitored 78 bpm bpm Respiratory Rate - Anes 3 br/min br/min 04/22/2023 8:43 EDT Systolic Blood Pressure Non-Invasive 101 mmHg mmHg Diastolic Blood Pressure Non-Invasive 65 mmHg mmHg 04/22/2023 8:40 EDT Heart Rate Monitored 61 bpm bpm Respiratory Rate - Anes 18 br/min br/min Systolic Blood Pressure Non-Invasive 94 mmHg mmHg Diastolic Blood Pressure Non-Invasive 62 mmHg mmHg 04/22/2023 8:37 EDT Systolic Blood Pressure Non-Invasive 92 mmHg mmHg Diastolic Blood Pressure Non-Invasive 60 mmHg mmHg 04/22/2023 8:35 EDT Heart Rate Monitored 62 bpm bpm Respiratory Rate - Anes 19 br/min br/min 04/22/2023 8:34 EDT Systolic Blood Pressure Non-Invasive 95 mmHg mmHg Diastolic Blood Pressure Non-Invasive 62 mmHg mmHg 04/22/2023 8:31 EDT Systolic Blood Pressure Non-Invasive 95 mmHg mmHg Diastolic Blood Pressure Non-Invasive 60 mmHg mmHg 04/22/2023 8:30 EDT Heart Rate Monitored 65 bpm bpm Respiratory Rate - Anes 18 br/min br/min 04/22/2023 8:28 EDT Systolic Blood Pressure Non-Invasive 91 mmHg mmHg Diastolic Blood Pressure Non-Invasive 64 mmHg mmHg 04/22/2023 8:25 EDT Heart Rate Monitored 64 bpm bpm Respiratory Rate - Anes 18 br/min br/min Systolic Blood Pressure Non-Invasive 99 mmHg mmHg Diastolic Blood Pressure Non-Invasive 63 mmHg mmHg 04/22/2023 8:22 EDT Systolic Blood Pressure Non-Invasive 102 mmHg mmHg Diastolic Blood Pressure Non-Invasive 65 mmHg mmHg 04/22/2023 8:20 EDT Heart Rate Monitored 62 bpm bpm Respiratory Rate - Anes 16 br/min br/min 04/22/2023 8:19 EDT Systolic Blood Pressure Non-Invasive 112 mmHg mmHg Diastolic Blood Pressure Non-Invasive 65 mmHg mmHg 04/22/2023 8:16 EDT Systolic Blood Pressure Non-Invasive 119 mmHg mmHg Diastolic Blood Pressure Non-Invasive 72 mmHg mmHg 04/22/2023 8:15 EDT Heart Rate Monitored 62 bpm bpm Respiratory Rate - Anes 0 br/min br/min 04/22/2023 8:13 EDT Systolic Blood Pressure Non-Invasive 119 mmHg mmHg Diastolic Blood Pressure Non-Invasive 73 mmHg mmHg 04/22/2023 8:10 EDT Heart Rate Monitored 64 bpm bpm Respiratory Rate - Anes 15 br/min br/min Systolic Blood Pressure Non-Invasive 125 mmHg mmHg Diastolic Blood Pressure Non-Invasive 74 mmHg mmHg 04/22/2023 6:37 EDT Temperature Temporal Artery 36.5 DegC Peripheral Pulse Rate 64 bpm Respiratory Rate 18 br/min Systolic Blood Pressure Non-Invasive 121 mmHg Diastolic Blood Pressure Non-Invasive 75 mmHg . Mental status: at preoperative baseline. Respiratory function: respirations are non-labored, stable. Respiratory support: none. CV function: stable. Cardiovascular support: none. Pain: satisfactory. Nausea status: satisfactory. Postoperative hydration status: within normal limits. Notes: Patient is sufficiently recovered from anesthesia to participate in the evaluation. No follow-up care needed. No complications post-anesthesia.. Digitally Signed by KADEN SMITH MD on 04/22/2023 09:08 AM [facility] 04-22-2023 Summary of episod e note Discharge Instructions Thank you for allowing [facility] to assist you with your healthcare needs. The following is important discharge information regarding your hospital visit. Your Care Team JAKE GOODMAN DO Your Diagnosis Post-op pain What to do next Scheduled Follow-Up Appointments Appointment Type When With Where Contact InformationGS OV Post Op 05/04/2023 10:00 AM EDT BRANDI BA MD [facility] [address] CV Procedure - Echo (Adult) 05/08/2023 09:00 AM EDT Nav CV Follow Up Appointments Follow Up with BRANDI BA MD, [facility]/[place], Surgery When Where: [address] [facility] [address] [facility] [address] [place] [address] [id number] The Following Activity and Diet Have Been Ordered for You Discharge Activity - Ordered -- Lifting Restricted less than 25 pounds, 04/22/23 8:55:00 EDT Discharge Diet - Ordered -- Follow the post-operative/post-procedure diet instructions provided by your physician's office., 04/22/23 8:55:00 EDT The Following Equipment Has Been Ordered for You Discharge Home Equipment Discharge Wound Care - Ordered -- Follow the post-operative/post-procedure wound care instructions provided by your physician's office., 04/22/23 8:55:00 EDT Allergies NKA Medications Please ask your primary doctor or pharmacist before taking any other medication not listed, including over the counter drugs, herbal medications, vitamins and or supplements as they may interact with your home medications. What How Much When Why Instructions Last Dose New acetaminophen-hydrocodone ([place] 325- 5 mg oral tablet) 1 tab(s) by mouth Every 4 hours as needed for for pain Post-op pain Duration: 5 Days Pickup at [facility]/pharmacy #[id number] Unchanged finasteride (finasteride 5 mg oral tablet) 1 tab(s) by mouth Daily at bedtime Unchanged multivitamin with minerals (Multi-Day Plus Minerals oral tablet) 1 tab(s) by mouth Once a day (in the morning) Pharmacy Information [facility]/pharmacy #[id number]: [address] [place] [phone] Please take this list to your next doctor s visit. Bring all medications you take, including over the counter medications, herbals and other supplements with you to your doctor s visit. Patients and families are reminded to discard old lists and to update any records with all medication providers or retail pharmacies. Education Materials [facility] SAME DAY SURGERY DISCHARGE INSTRUCTIONS PLEASE FOLLOW THE INSTRUCTIONS BELOW MARKED WITH AN X: _x__ Regular Diet: Start with clear liquids, then soup and crackers and gradually add other foods. _x__ Drink extra fluids. ___ Special Diet Instructions: ___ ACTIVITY: _x__ Avoid stress to suture line. Since you have had an anesthetic, it would be advisable not to drive, drink alcohol, or make major decisions over the next 24 hours. You may require more rest tonight and tomorrow. ___ May resume regular activity as tolerated. ___ Restrict activity as follows: ___ ___ Walk Only ___ ___ Do not go up and down stairs. ___ Do not ride in car until ___ ___ Do not drive car. ___ Do not have sexual intercourse. ___ No heavy lifting, pushing or straining. _x__ Other: _Follow all instructions provided to you by Dr. Ba__ BATHING/SHOWERING: ___ Sponge bathe until office visit. ___ Sitting in tub of warm water may relieve discomfort. ___ May tub bathe _x__ May shower ___ On day after surgery sit in tub of warm water to soak off dressing. DRESSING: ___ Keep operative area dry and clean for ___ _x__ Check the operative area for signs of bleeding. Apply pressure to the bleeding site if necessary and call your physician. ___ Change dressing as necessary using sterile dressing material or bandaid. ___ Reinforce dressing as necessary. ___ Change and care for wound as follows: ___ ___ Wear bra for ___ days following breast surgery for comfort. ___ Change drip pad as needed. ___ Wear scrotal support for comfort. WATCH FOR SIGNS OF INFECTION: (Usually appears 36-48 hours after surgery) Increased temperature (101 degrees Fahrenheit or higher) Redness or swelling Increased pain Foul odor or drainage. If you have any questions, please call your doctor at the number listed on your follow up instructions. Follow all instructions given to you by your physician. Please complete and return the survey you will be receiving in the mail to help us better serve our patients. Form: [id number] ([id number]) R: 02/15 Additional Information VACCINATE! IT SAVES LIVES! Members of the community who have not yet received the COVID-19 vaccine and would like to receive it can visit one of [facility] vaccine clinics. There are many vaccine clinic locations within the [facility]. For locations and available times, please visit [email or web address] [email or web address] It is important to note that some COVID mobile vaccine clinics are held outdoors and may be canceled in rainy or stormy conditions. To learn more about pediatric vaccinations (ages 5-11), we invite you to visit the [facility] webpage. https://www.[employer].org/p ages/4874-Mfpja-Ntetdngggaq-Freq kzxuap-Emmfs-Qehabycgs.html To learn more about the COVID-19 vaccine, we invite you to visit the CDC website for a list of frequently asked questions.https://www.cdc.gov/co ronavirus/2019-ncov/vaccines/faq .html [facility] Patient Portal Access Instructions: Stay connected with your healthcare team and access your personal medical information anytime with the [facility] Patient Portal. Please follow the directions below to create your [facility] account: 1.Access the email account you provided upon registration to the hospital/physician office.2.Look for an invitation email from [facility].3.Open the email and access the invitation link: Accept Invitation to [facility].4.Fill in the required louise to create your account. To access your account, visit [email or web address]. Click the blue button labeled Access Patient Portal and then log in with the username and password that you created in the steps above. You will be able to view your test results, lab results, a summary of your visits, upcoming appointments and more. There is also a convenient messaging option where you can send secure messages to your provider. In addition, you will have the ability to download any documents or summaries to your computer and/or send the information securely to a physician. Remember that your healthcare information is confidential, so carefully consider who you will allow to register on the [facility] Patient Portal for access to your information. You can also access the [facility] Patient Portal on the [facility] tony. Simply click on Patient Portal and then log into your account. If you would like to receive a full copy of your medical records, please contact the [facility] Medical Records Department by calling [phone], Thursday through Thursday between 8 a.m. and 4:30 p.m. HOW TO SAFELY DISPOSE OF PRESCRIPTION MEDICATIONS Please use one of the following methods to safely dispose of your unused medications. 1.Use a drug disposal kit: the drug disposal pouch allows you to safely discard your old and unused drugs. Ask your nurse to give you one when you are discharged.2.Visit a local take-back location: Many local pharmacies and police departments have programs that collect old and unwanted prescription drugs. Call your local pharmacy or go to http://Fastly/2N5Ho9f to find one close to you.3.Make use of household items: Use cat litter or old coffee grounds to dispose medications if other options are not available. Mix your drugs with these household products, seal them in an airtight container and throw it into the garbage. Call [facility]: [phone] to be sure your drugs can be disposed of in this way. Some medicines may require a different approach.4.Never flush your medications down the toilet. IF YOU HAVE BEEN PRESCRIBED AN OPIOID FOR PAIN If you have been prescribed an opioid (such as hydrocodone, oxycodone or morphine), it is critical to understand the possible side effects and risks of opioid pain medications. Even when taken as directed, opioids can have several side effects including: Tolerance, meaning you might need to take more of a medication for the same pain relief. Nausea, vomiting and/or constipation. Sleepiness, dizziness, dry mouth, confusion, depression or itching. Physical dependence, meaning you have withdrawal symptoms when a medication is stopped, can develop within a few days. KNOW YOUR RESPONSIBILITIES It is important to know exactly how much and how often to take the opioid pain medications you are prescribed. Never take opioids in higher amounts or more often than prescribed. Do not combine opioids with alcohol or other drugs that cause drowsiness, such as benzodiazepines, also known as benzos, including diazepam and alprazolam, muscle relaxants or sleep aids. Never sell or share prescription opioids. This is illegal. Store opioids in a secure place and out of reach of others (including children, family, friends and visitors). The last page of this document has been signed and retained as a CHART COPY. Signatures Patient Education Materials 1-SDS Discharge Instructions Template (08/2018)(CUSTOM) Medication Leaflets My discharge plan and instructions have been reviewed and explained to me and I,STEVENSON FAULKNER understand my current condition and have read and understand these discharge instructions. I have received a written copy of the plan/instructions. If I have questions, I am aware that I should contact my doctor. Patient/Inside Sales Territory Manager Signature: Date/Time: Relationship to Patient: Witness Name/Signature: Date/Time: [facility] 04-22-2023 Anesthesiology Consult note Patient: STEVENSNO FAULKNER Age: 62 years Sex: Male : 1960 Associated Diagnoses: None Author: LYN PATTERSON MD Preoperative Information NPO > 8 hrs Anesthesia history Patient's history: negative. Family's history: negative. History of Present Illness 62yo male with PMH of BPH presenting for lipoma excision of shoulder. Patient denies current CP, SOB, NVD, GERD symptoms. METs>4. Had holter monitor which showed very low number PVC/PAC that did not correlate with palpitations and otherwise NSR. EP deemed no further workup needed. Review of Systems Ear/Nose/Mouth/Throat: Negative except as documented in history of present illness. Respiratory: Negative except as documented in history of present illness. Cardiovascular: Negative except as documented in history of present illness. Gastrointestinal: Negative except as documented in history of present illness. Genitourinary: Negative except as documented in history of present illness. Endocrine: Negative except as documented in history of present illness. Musculoskeletal: Negative except as documented in history of present illness. Integumentary: Negative except as documented in history of present illness. Neurologic: Negative except as documented in history of present illness. Health Status Allergies: Allergic Reactions (Selected) NKA, Allergies (1) ActiveReaction NKANone Documented Current medications: (Selected) Inpatient Medications Ordered Kefzol: 2 gram(s), 20 mL, 240 mL/hr, IV Push (INT), PREOP pharm LR 1,000 mL: 20 mL/hr, Intravenous lidocaine 1% preservative-free injectable solution: 2.5 mg, 0.25 mL, Intradermal, prep pharm Documented Medications Documented Multi-Day Plus Minerals oral tablet: 1 tab(s), Oral, qAM, 30 tab(s), 0 Refill(s) finasteride 5 mg oral tablet: 5 mg, 1 tab(s), Oral, qHS, Medications (3) Active Scheduled: (2) ceFAZolin syringe 2 gram(s) 20 mL, IV Push (INT), PREOP pharm lidocaine 1% (MPF) 2 mL vial pf 2.5 mg 0.25 mL, Intradermal, prep pharm Continuous: (1) Lactated Ringers 1,000 mL 1,000 mL, Intravenous, 20 mL/hr PRN: (0) Problem list: Medical Enlarged prostate / SNOMED CT 994326384 / Confirmed Family history of early CAD / SNOMED CT 632971895 / Confirmed Elevated fasting glucose / SNOMED CT 751012233 / Confirmed Lipoma / SNOMED CT 482204548 / Confirmed Numerous moles / SNOMED CT 6859013729 / Confirmed Mixed hyperlipidemia / SNOMED CT 397335007 / Confirmed PVC's (premature ventricular contractions) / SNOMED CT 5522708596 / Confirmed Hernia, umbilical / SNOMED CT 7395241509 / Confirmed Resolved: Inguinal hernia / SNOMED CT 7022488537 Resolved: Left inguinal hernia / SNOMED CT 714401642 Resolved: Palpitations / SNOMED CT 819830589 Canceled: Back pain / SNOMED CT 1407017842 Canceled: Postop check / SNOMED CT 762020288, Active Problems (9) Elevated fasting glucose Enlarged prostate Family history of early CAD Hernia, umbilical Lipoma Lipoma of right shoulder Mixed hyperlipidemia Numerous moles PVC's (premature ventricular contractions) Histories Past Medical History: Active Enlarged prostate (990267907) Hernia, umbilical (0387437850) Resolved Palpitations (811489531): Resolved. Inguinal hernia (2019350135): Resolved. Left inguinal hernia (927461030): Resolved. Procedure history: Repair of left inguinal hernia (0175969500) on 02/10/2023 at 62 Years. Comments: 02/19/2023 9:20 EDT - Dilia Mishra CMA Left inguinal hernia repair with mesh Hernia repair (76478095). Comments: 01/15/2023 14:08 Kelley Klein CMA right inguinal hernia repair 10/03/2019 11:31 Reina Rodriguez CMA ([facility]) 2015 Social History Social & Psychosocial Habits Alcohol 10/03/2019 Use: Never Substance Abuse 10/03/2019 Use: Never Tobacco 10/03/2019 Tobacco Use: Never (less than 100 in l Home/Environment 02/03/2023 Domestic Concerns None Living situation: Home/Independent Safe place to go: Yes Marital Status of Patient if Patient Independent Adult: Comment: LIVES WITH - 02/03/2023 08:26 - [facility] Nutrition/Health 02/03/2023 Type of diet: Regular Appetite Good Eating Difficulties None 04/14/2023 Caffeine intake amount: 2 cups daily . Physical Examination Vital Signs(last 24 hrs) Last Charted Resp Rate 18 br/min (APR 22 06:37) YVK652 mmHg (APR 22 06:37) DBP75 mmHg (APR 22 06:37) Measurements from flowsheet : Measurements 04/22/2023 6:42 EDT Body Mass Index In Error kg/m2 (In Error) 04/22/2023 6:37 EDT Height 177.8 cm Admission Weight 74.6 kg [place] Body Weight 73.00 kg Type of Scale Used Weigh bed General: Alert and oriented, No acute distress. Airway: Normal temporomandibular joint mobility, Normal mouth, Normal neck range of motion. Mallampati classification: I (soft palate, fauces, uvula, pillars visible). Dentition Evaluation: Intact, Own teeth. Neck: Supple. Respiratory: Lungs are clear to auscultation, Respirations are non-labored. Cardiovascular: Normal rate, Regular rhythm. Heart Sounds: Normal. Neurologic: Alert, Oriented, No focal deficits. Review / Management Results review: No qualifying data available . Documentation reviewed: Current records. Assessment and Plan [place] [employer] Anesthesiologists (ASA) physical status classification: Class I. Anesthetic Preoperative Plan Premedication: intravenous. Anesthetic technique: MAC (GA as backup). Induction: intravenously. Maintenance airway: Mask. Postoperative pain management: Per surgeon. Risks discussed: nausea, vomiting, sore throat, dental injury, serious complications. Informed consent: signed by patient. Notes: discussed and consented pt for mac anesthesia however also discussed and consented for general anesthesia if necessary for conversion , Late entry due to participation in pt care. Pt seen and evaluated prior to performing anesthetic. Discussed and agree upon plan. . Digitally Signed by LYN PATTERSON MD on 04/22/2023 08:10 AM [facility] 02-25-2023 Evaluation + Plan note Future Scheduled TestsBasic Metabolic Panel 02/26/24Prostate Specific Antigen 02/25/23Thyroid Stimulating Hormone 03/06/23Free T4 03/06/23Complete Blood Count 03/06/24Complete Blood Count 02/17/23Lipid Profile 02/26/24epatitis C Antibody IgG 03/06/24MRI Cardiac Morphology & Func W+W/O Cont 05/18/23XR Foreign Body Loc Eye Bilateral 09/25/23 [facility] 02-10-2023 Hospital Discharg e instructions Patient Education 02/10/2023 12:40:58 1-[facility] Discharge Instructions Template (08/2018) (CUSTOM) [facility] SAME DAY SURGERY DISCHARGE INSTRUCTIONS See Dr. Ba's preprinted discharge instructions PLEASE FOLLOW THE INSTRUCTIONS BELOW MARKED WITH AN X: _X__ Regular Diet: Start with clear liquids, then soup and crackers and gradually add other foods. ___ Drink extra fluids. ___ Special Diet Instructions: ___ ACTIVITY: ___ Avoid stress to suture line. Since you have had an anesthetic, it would be advisable not to drive, drink alcohol, or make major decisions over the next 24 hours. You may require more rest tonight and tomorrow. ___ May resume regular activity as tolerated. ___ Restrict activity as follows: ___ ___ Walk Only ___ ___ Do not go up and down stairs. ___ Do not ride in car until ___ ___ Do not drive car. ___ Do not have sexual intercourse. _X__ No heavy lifting of 20# or more, pushing or straining. ___ Other: ___ BATHING/SHOWERING: ___ Sponge bathe until office visit. ___ Sitting in tub of warm water may relieve discomfort. ___ May tub bathe ___ May shower ___ On day after surgery sit in tub of warm water to soak off dressing. DRESSING: _X__ Keep operative area dry and clean for _48 hours may remove and shower; Leave steri strips on for 5-7 days__ ___ Check the operative area for signs of bleeding. Apply pressure to the bleeding site if necessary and call your physician. ___ Change dressing as necessary using sterile dressing material or bandaid. ___ Reinforce dressing as necessary. ___ Change and care for wound as follows: ___ ___ Wear bra for ___ days following breast surgery for comfort. ___ Change drip pad as needed. ___ Wear scrotal support for comfort. WATCH FOR SIGNS OF INFECTION: (Usually appears 36-48 hours after surgery) Increased temperature (101 degrees Fahrenheit or higher) Redness or swelling Increased pain Foul odor or drainage. If you have any questions, please call your doctor at the number listed on your follow up instructions. Follow all instructions given to you by your physician. Please complete and return the survey you will be receiving in the mail to help us better serve our patients. Form: [id number] ([id number]) R: 02/15 [facility] 02-10-2023 Anesthesiology Consult note Patient: STEVENSON FAULKNER Age: 62 years Sex: Male : 1960 Associated Diagnoses: None Author: KOFI VÁZQUEZ DO Postoperative Information Post Operative Info: Post op day: Post Anesthesia Care Unit. Patient location: PACU. Assessment Postanesthesia assessment Vitals. Mental status: at preoperative baseline. Respiratory function: respirations are non-labored. Respiratory support: oxygen room air. CV function: stable. Cardiovascular support: none. Pain: satisfactory. Nausea status: satisfactory. Postoperative hydration status: within normal limits. Notes: Patient sufficiently recovered from anesthesia to participate in the evaluation. No follow-up needed. No post-anesthesia complications.. Digitally Signed by KOFI VÁZQUEZ DO on 02/10/2023 01:00 PM [facility] 02-10-2023 Summary of episod e note Discharge Instructions Thank you for allowing [facility] to assist you with your healthcare needs. The following is important discharge information regarding your hospital visit. Your Diagnosis Post-op pain What to do next Scheduled Follow-Up Appointments Appointment Type When With Where Contact InformationGS OV Post Op 02/19/2023 09:20 AM BRANDI JETER MD [facility] [address] [facility] Annual 03/06/2023 10:30 AM JAKE HARDIN DO [facility] Allergies NKA Medications Please ask your primary doctor or pharmacist before taking any other medication not listed, including over the counter drugs, herbal medications, vitamins and or supplements as they may interact with your home medications. What How Much When Why Instructions Last Dose New acetaminophen-hydrocodone ([place] 325- 5 mg oral tablet) 1 tab(s) by mouth Every 4 hours as needed for for pain Post-op pain Duration: 5 Days Pickup at [facility]/pharmacy #8248 Unchanged finasteride (finasteride 5 mg oral tablet) 1 tab(s) by mouth Once a day Unchanged multivitamin with minerals (Multi-Day Plus Minerals oral tablet) 1 tab(s) by mouth Every day Pharmacy Information [facility]/pharmacy #[id number]: [address] [place], [place] [phone] Please take this list to your next doctor s visit. Bring all medications you take, including over the counter medications, herbals and other supplements with you to your doctor s visit. Patients and families are reminded to discard old lists and to update any records with all medication providers or retail pharmacies. Education Materials [facility] SAME DAY [facility] DISCHARGE INSTRUCTIONS See Dr. Ba's preprinted discharge instructions PLEASE FOLLOW THE INSTRUCTIONS BELOW MARKED WITH AN X: _X__ Regular Diet: Start with clear liquids, then soup and crackers and gradually add other foods. ___ Drink extra fluids. ___ Special Diet Instructions: ___ ACTIVITY: ___ Avoid stress to suture line. Since you have had an anesthetic, it would be advisable not to drive, drink alcohol, or make major decisions over the next 24 hours. You may require more rest tonight and tomorrow. ___ May resume regular activity as tolerated. ___ Restrict activity as follows: ___ ___ Walk Only ___ ___ Do not go up and down stairs. ___ Do not ride in car until ___ ___ Do not drive car. ___ Do not have sexual intercourse. _X__ No heavy lifting of 20# or more, pushing or straining. ___ Other: ___ BATHING/SHOWERING: ___ Sponge bathe until office visit. ___ Sitting in tub of warm water may relieve discomfort. ___ May tub bathe ___ May shower ___ On day after surgery sit in tub of warm water to soak off dressing. DRESSING: _X__ Keep operative area dry and clean for _48 hours may remove and shower; Leave steri strips on for 5-7 days__ ___ Check the operative area for signs of bleeding. Apply pressure to the bleeding site if necessary and call your physician. ___ Change dressing as necessary using sterile dressing material or bandaid. ___ Reinforce dressing as necessary. ___ Change and care for wound as follows: ___ ___ Wear bra for ___ days following breast surgery for comfort. ___ Change drip pad as needed. ___ Wear scrotal support for comfort. WATCH FOR SIGNS OF INFECTION: (Usually appears 36-48 hours after surgery) Increased temperature (101 degrees Fahrenheit or higher) Redness or swelling Increased pain Foul odor or drainage. If you have any questions, please call your doctor at the number listed on your follow up instructions. Follow all instructions given to you by your physician. Please complete and return the survey you will be receiving in the mail to help us better serve our patients. Form: [id number] ([id number]) R: 02/15 Additional Information VACCINATE! IT SAVES LIVES! Members of the community who have not yet received the COVID-19 vaccine and would like to receive it can visit one of [facility] vaccine clinics. There are many vaccine clinic locations within the [facility]. For locations and available times, please visit [email or web address] It is important to note that some COVID mobile vaccine clinics are held outdoors and may be canceled in rainy or stormy conditions. To learn more about pediatric vaccinations (ages 5-11), we invite you to visit the [facility] webpage. [email or web address] [email or web address] To learn more about the COVID-19 vaccine, we invite you to visit the CDC website for a list of frequently asked questions. https://www.cdc.gov/coronavirus/ 2019-ncov/vaccines/faq.html [facility] Patient Portal Access Instructions: Stay connected with your healthcare team and access your personal medical information anytime with the [facility] Patient Portal.If you would like a full copy of your medical records, please contact the [facility] Medical Records Department, Thursday through Thursday between 8a.m. and 4:30p.m. Please follow the directions below to access the portal: 1.Access the email account you provided upon registration to the hospital.2.Look for an invitation email from [facility].3.Open the email and access the invitation link: Accept Invitation to [facility]4.Fill in the required louise to create your account. Sign into [email or web address] with your username and password that you created in the above steps to stay up to date. You can then view a summary of results, a summary of your visits, and the ability to download your summaries to your computer or send the information securely to a physician. Remember that your healthcare information is confidential, so carefully consider who you will allow to register on the [facility] [employer] Patient Portal for access to your information. You can also access the [facility] Patient Portal on the [employer] tony. Simply click on Health Records under Health Data and then click on the [employer] logo. HOW TO SAFELY DISPOSE OF PRESCRIPTION MEDICATIONS Please use one of the following methods to safely dispose of your unused medications. 1.Use a drug disposal kit: the drug disposal pouch allows you to safely discard your old and unused drugs. Ask your nurse to give you one when you are discharged.2.Visit a local take-back location: Many local pharmacies and police departments have programs that collect old and unwanted prescription drugs. Call your local pharmacy or go to http://[employer]TapFame/4Q0Po4m to find one close to you.3.Make use of household items: Use cat litter or old coffee grounds to dispose medications if other options are not available. Mix your drugs with these household products, seal them in an airtight container and throw it into the garbage. Call [facility]: [phone] to be sure your drugs can be disposed of in this way. Some medicines may require a different approach.4.Never flush your medications down the toilet. IF YOU HAVE BEEN PRESCRIBED AN OPIOID FOR PAIN If you have been prescribed an opioid (such as hydrocodone, oxycodone or morphine), it is critical to understand the possible side effects and risks of opioid pain medications. Even when taken as directed, opioids can have several side effects including: Tolerance, meaning you might need to take more of a medication for the same pain relief. Nausea, vomiting and/or constipation. Sleepiness, dizziness, dry mouth, confusion, depression or itching. Physical dependence, meaning you have withdrawal symptoms when a medication is stopped, can develop within a few days. KNOW YOUR RESPONSIBILITIES It is important to know exactly how much and how often to take the opioid pain medications you are prescribed. Never take opioids in higher amounts or more often than prescribed. Do not combine opioids with alcohol or other drugs that cause drowsiness, such as benzodiazepines, also known as benzos, including diazepam and alprazolam, muscle relaxants or sleep aids. Never sell or share prescription opioids. This is illegal. Store opioids in a secure place and out of reach of others (including children, family, friends and visitors). The last page of this document has been signed and retained as a CHART COPY. Signatures Patient Education Materials 1-SDS Discharge Instructions Template (08/2018) (CUSTOM) Medication Leaflets My discharge plan and instructions have been reviewed and explained to me and LUCIE Murphy RANDY J understand my current condition and have read and understand these discharge instructions. I have received a written copy of the plan/instructions. If I have questions, I am aware that I should contact my doctor. Patient/Inside Sales Territory Manager Signature: Date/Time: Relationship to Patient: Witness Name/Signature: Date/Time: [facility] 02-10-2023 Anesthesiology Consult note Patient: STEVENSON FAULKNER Age: 62 years Sex: Male : 1960 Associated Diagnoses: None Author: GURINDER PRINGLE MD Preoperative Information NPO > 8 hrs Anesthesia history Patient's history: negative. Family's history: negative. History of Present Illness The patient presents for preanesthesia evaluation with 62yo male with PMH of BPH and left inguinal hernia presenting for left inguinal hernia repair. Patient denies current CP, SOB, NVD, GERD symptoms. METs>4.. Review of Systems Ear/Nose/Mouth/Throat: Negative except as documented in history of present illness. Respiratory: Negative except as documented in history of present illness. Cardiovascular: Negative except as documented in history of present illness. Gastrointestinal: Negative except as documented in history of present illness. Genitourinary: Negative except as documented in history of present illness. Endocrine: Negative except as documented in history of present illness. Musculoskeletal: Negative except as documented in history of present illness. Integumentary: Negative except as documented in history of present illness. Neurologic: Negative except as documented in history of present illness. Health Status Allergies: Allergic Reactions (Selected) NKA, Allergies (1) ActiveReaction NKANone Documented Current medications: (Selected) Inpatient Medications Ordered Kefzol: 2 gram(s), 20 mL, 240 mL/hr, IV Push (INT), PREOP pharm LR 1,000 mL: 20 mL/hr, Intravenous, Stop: 02/10/23 22:59:00 EDT lidocaine 1% preservative-free injectable solution: 2.5 mg, 0.25 mL, Intradermal, prep pharm Documented Medications Documented Multi-Day Plus Minerals oral tablet: 1 tab(s), Oral, Daily, 30 tab(s), 0 Refill(s) finasteride 5 mg oral tablet: 5 mg, 1 tab(s), Oral, qDay, Medications (3) Active Scheduled: (2) ceFAZolin syringe 2 gram(s) 20 mL, IV Push (INT), PREOP pharm lidocaine 1% (MPF) 2 mL vial pf 2.5 mg 0.25 mL, Intradermal, prep pharm Continuous: (1) Lactated Ringers 1,000 mL 1,000 mL, Intravenous, 20 mL/hr PRN: (0) Problem list: Medical Enlarged prostate / SNOMED CT 775334119 / Confirmed Family history of early CAD / SNOMED CT 689217407 / Confirmed Elevated fasting glucose / SNOMED CT 081331938 / Confirmed Inguinal hernia / SNOMED CT 6086586206 / Confirmed Left inguinal hernia / SNOMED CT 963062861 / Confirmed Numerous moles / SNOMED CT 3441108066 / Confirmed Mixed hyperlipidemia / SNOMED CT 850507465 / Confirmed Hernia, umbilical / SNOMED CT 9662775810 / Confirmed Resolved: Palpitations / SNOMED CT 464557938 Canceled: Back pain / SNOMED CT 4606669893, Active Problems (8) Elevated fasting glucose Enlarged prostate Family history of early CAD Hernia, umbilical Inguinal hernia Left inguinal hernia Mixed hyperlipidemia Numerous moles Histories Past Medical History: Active Enlarged prostate (146426213) Hernia, umbilical (2354621260) Inguinal hernia (8850118213) Resolved Palpitations (595049125): Resolved. Procedure history: Hernia repair (46306764). Comments: 01/15/2023 14:08 Kelley Klein CMA right inguinal hernia repair 10/03/2019 11:31 Reina Rodriguez CMA ([facility]) 2015 Social History Social & Psychosocial Habits Alcohol 10/03/2019 Use: Never Substance Abuse 10/03/2019 Use: Never Tobacco 10/03/2019 Tobacco Use: Never (less than 100 in l Home/Environment 02/03/2023 Domestic Concerns None Living situation: Home/Independent Safe place to go: Yes Marital Status of Patient if Patient Independent Adult: Comment: LIVES WITH - 02/03/2023 08:26 - [facility] Nutrition/Health 02/03/2023 Type of diet: Regular Appetite Good Eating Difficulties None . Physical Examination Vital Signs(last 24 hrs) Last Charted Resp Rate 18 br/min (FEB 10 07:33) CWV521 mmHg (FEB 10 07:33) DBP79 mmHg (FEB 10 07:33) Measurements from flowsheet : Measurements 02/10/2023 7:33 EDT Height 177.8 cm Height in inches 70 inch(es) Admission Weight 78.6 kg Weight Lbs 172.9 lb [place] Body Weight 73.00 kg Admission Body Mass Index 24.86 m2 General: Alert and oriented, No acute distress. Airway: Normal temporomandibular joint mobility, Normal mouth, Normal neck range of motion. Mallampati classification: I (soft palate, fauces, uvula, pillars visible). Dentition Evaluation: Intact, Own teeth. Respiratory: Lungs are clear to auscultation. Cardiovascular: Normal rate, Regular rhythm. Heart Sounds: Normal. Neurologic: Alert, Oriented, No focal deficits. Review / Management Results review: No qualifying data available . Documentation reviewed: Current records. Assessment and Plan [place] [employer] Anesthesiologists (ASA) physical status classification: Class I. Anesthetic Preoperative Plan Premedication: intravenous. Anesthetic technique: MAC (GA as backup). Induction: intravenously. Maintenance airway: Mask. Postoperative pain management: Per surgeon. Risks discussed: nausea, vomiting, sore throat, dental injury, serious complications. Informed consent: signed by patient. Digitally Signed by GURINDER PRINGLE MD on 02/10/2023 08:59 AM [facility] Evaluation + Plan note Future Appointments Appointment Date:02/19/2023 09:20:00 AM Scheduled Provider:BRANDI BA MD Location:[facility] 620 Appointment Type:GS OV Post Op Future Scheduled TestsBasic Metabolic Panel 02/17/23Basic Metabolic Panel 02/17/22Prostate Specific Antigen 02/17/23Prostate Specific Antigen 02/17/22Complete Blood Count 02/17/23Complete Blood Count 02/17/22Lipid Profile 02/17/23Lipid Profile 02/17/22 [facility] Evaluation + Plan note Future Appointments Appointment Date:02/19/2023 09:20:00 AM Scheduled Provider:BRANDI BA MD Location:[facility] Appointment Type: OV Post Op Appointment Date:03/06/2023 10:30:00 AM Scheduled Provider:JAKE GOODMAN DO Location:[facility] Appointment Type:PC Wellness Annual Future Scheduled TestsBasic Metabolic Panel 01/26/23Basic Metabolic Panel 02/17/23Basic Metabolic Panel 02/17/22Prostate Specific Antigen 01/26/23Prostate Specific Antigen 02/17/23Prostate Specific Antigen 02/17/22Complete Blood Count 01/26/23Complete Blood Count 02/17/23Complete Blood Count 02/17/22Lipid Profile 01/26/23Lipid Profile 02/17/23Lipid Profile 02/17/22 [facility] Evaluation + Plan note Future Appointments Appointment Date:05/04/2023 10:00:00 AM Scheduled Provider:BRANDI BA MD Location:[place] [address] Appointment Type: OV Post Op Appointment Date:05/08/2023 09:00:00 AM Scheduled Provider: Location:[facility] Appointment Type:CV Procedure - Echo (Adult) Future Scheduled TestsBasic Metabolic Panel 02/26/24Prostate Specific Antigen 02/25/23Thyroid Stimulating Hormone 03/06/23Free T4 03/06/23Complete Blood Count 03/06/24Complete Blood Count 02/17/23Lipid Profile 02/26/24epatitis C Antibody IgG 03/06/24 [facility] Hospital course Narrative No data available for this section [facility] Hospital Discharge instructions No data available for this section [facility] Progress note No data available for this section [facility] Summary Purpose Family History No Family History Records Found No data available for this section No Family History Records FoundNo Family History Records FoundNo Family History Records Found Advance Directives No Advanced Directives Records FoundNo Advanced Directives Records FoundNo Advanced Directives Records FoundNo Advanced Directives Records Found Additional Source Comments INFORMATION SOURCE (unrecogn ized section and content) DATE CREATED AUTHOR 10/07/2019 [facility] ([place]) DATE CREATED AUTHOR AUTHOR'S ORGANIZ ATION 03/11/2024 [facility] ([place]) DATE CREATED AUTHOR AUTHOR'S ORGANIZ ATION 03/09/2025 JAE MASSILLO N DATE CREATED AUTHOR AUTHOR'S ORGANIZ ATION 04/05/[address] [facility] Care Team (unrecognized sect ion and content) Care Team Personnel Name: JAKE GOODMAN DO Position: P4 Physician - Primary Care Member Role: Primary Care Physician Address: Address: [address] [place] [address] Name: PRESTON SETH MD Position: P3 Physician - Gastroenterology Member Role: Milk Runner Address: Address: [address] [place] [address] Name: FUENTES PEACE MD Position: P3 Physician - Urologist Member Role: Urologist Address: Address: [address] [place] [address] [address] [place] [address]- [place] Name: BRANDI BA MD Position: P4 Physician - General Surgery Member Role: Surgeon Address: Address: [address] [place] [address] [address] [facility] [address] [place] [phone] Care Team Related Persons Name: RAYMOND FAULKNER Address: Home [address] [place], [place] [phone] Patient Care team informatio n (unrecognized section and content) Care Team Personnel Name: JAKE GOODMAN DO Position: P4 Physician - Primary Care Member Role: Primary Care Physician Address: Address: [address] [place] [address] Name: PRESTON SETH MD Position: P3 Physician - Gastroenterology Member Role: Milk Runner Address: Address: [address] [place] [address] Name: FUENTES PEACE MD Position: P3 Physician - Urologist Member Role: Urologist Address: Address: [address] [facility] [address] [place] [address]- [place] Name: BRANDI BA MD Position: P4 Physician - General Surgery Member Role: Surgeon Address: Address: [address] [facility] [address] [address] [place] Care Team Related Persons Name: RAYMOND FAULKNER Address: Home [address] [place], [place] [phone] [place] Care Team Personnel Name: JAKE GOODMAN DO Position: P4 Physician - Primary Care Member Role: Primary Care Physician Address: Address: [address] [place] [address]- [place] Name: PRESTON SETH MD Position: P3 Physician - Gastroenterology Member Role: Milk Runner Address: Address: [address] [place], [place] [address] [place] [address]- [place] Name: FUENTES PEACE MD Position: P3 Physician - Urologist Member Role: Urologist Address: Address: [address] [facility] [address] [place] [address]- [place] Name: BRANDI BA MD Position: P4 Physician - General Surgery Member Role: Surgeon Address: Address: [address] [facility] [address] [place] [phone] [place] Care Team Related Persons Name: RANDI FAULKNER Address: Home [address] [place], [place] [phone] [place] Name: RAYMOND FAULKNER Address: Home [address] [place], [place] [phone] [place] Care Team Personnel Name: JAKE GOODMAN DO Position: P4 Physician - Primary Care Member Role: Primary Care Physician Address: Address: [address] [place] [address]- [place] Name: PRESTON SETH MD Position: P3 Physician - Gastroenterology Member Role: Milk Runner Address: Address: [facility] [place] [address]- [place] Name: FUENTES PEACE MD Position: P3 Physician - Urologist Member Role: Urologist Address: Address: [address] [facility] [address] [place] [address]- [place] Name: BRANDI BA MD Position: P4 Physician - General Surgery Member Role: Surgeon Address: Address: [address] [place] [address] [address] [facility] [address] [place] [address] Care Team Related Persons Name: RANDI FAULKNER Address: Home [address] [place] [phone] Name: RAYMOND FAULKNER Address: Home [address] [place] [phone] (unrecognized sect ion and content) No Status Records FoundNo Status Records FoundNo Status Records Found FOR RECORDS PERTAINING TO PATIENTS WHO ARE OR HAVE BEEN ENROLLED IN A CHEMICAL DEPENDENCY/SUBSTANCEABUSE PROGRAM, SOME INFORMATION MAY BE OMITTED. This clinical summary was aggregated from multiple sources. Caution should be exercised in using it in the provision of clinical care. This summary normalizes information from multiple sources, and as a consequence, information in this document may materially change the coding, format and clinical context of patient data. In addition, data may be omitted in some cases. CLINICAL DECISIONS SHOULD BE BASED ON THE PRIMARY CLINICAL RECORDS. [facility] [employer] [facility]. provides no warranty or guarantee of the accuracy or completeness of information in this document.
== END | disposition home or self-care (01) ==
PROVIDERS: PCP Internal Medicine; Referring Provider Urology; Visit Provider Urology
DX: N39.0 Urinary tract infection, site not specified (principal)
CPT/HCPCS: 87077; 87086; 87088; 87186

== ENCOUNTER → 2025-10-26 | Outpatient (CLI) | payer MEDICARE, SELFPAY | END | disposition home or self-care (01) | LOC: LABSPEC 14:09 | PROVIDERS: PCP Internal Medicine; Referring Provider Urology; Visit Provider Urology | DX: N30.01 Acute cystitis with hematuria (principal) | CPT/HCPCS: 87077; 87086; 87088; 87186 ==